=== PATIENT | female | born 1970 | race Caucasian/White ===

== ENCOUNTER 2020-02-29 15:31 | Outpatient (CLI) | payer OTHER | END 2020-02-29 23:59 | disposition home or self-care (01) | LOC: CFH 15:31 | PROVIDERS: ATTEND Family Medicine | DX: Z12.31 Encounter for screening mammogram for malignant neoplasm of breast (principal) | CPT/HCPCS: 77067 ==

== ENCOUNTER 2020-03-04 08:06 | Outpatient (CLI) | payer OTHER | END 2020-03-04 23:59 | disposition home or self-care (01) | LOC: CVU 08:06 | PROVIDERS: ATTEND Family Medicine | DX: R60.0 Localized edema (principal) | CPT/HCPCS: 93970 ==